=== PATIENT | male | born 1975 | race African-American/Black ===

== ENCOUNTER 2021-05-13 21:38 | Emergency (ER) | payer OTHER, SELFPAY ==
--- NOTE | ~2021-05-13 | XR_ITS ---
EXAMINATION: XR chest 2V DATE: 05/13/2021 22:18 INDICATION: Left chest pain. Shortness of breath. TECHNIQUE: Frontal and lateral views of the chest were obtained. COMPARISON: None. FINDINGS: There is mild atelectasis in lingula. No pleural effusion or pneumothorax. The heart size i s normal. IMPRESSION: 1. Mild atelectasis in lingula. Reviewed, dictated and finalized at location A.
--- NOTE | 2021-05-13 21:48 | ECG_ITS ---
Measurements Intervals [place] Rate: 66 P: 56 MO: 159 QRS: -4 QRSD: 84 T: 32 QT: 366 QTc: 386 Interpretive Statements SINUS RHYTHM WITH SINUS ARRHYTHMIA VOLTAGE CRITERIA FOR LVH BASELINE ARTIFACT- II, III BORDERLINE ECG Electronically Signed On 05-14-2021 7:24:48 CDT by Tor Petty D.O.
[2021-05-13 21:49] VITALS: BP 131/91; PULSE 64; RESP 16; TEMP 36.4; O2SAT 100
[2021-05-13 21:54] VITALS: PULSE 63
[2021-05-13 22:10] LABS: Basophils Percent Auto 0.3 % (0.2-1.2); Eosinophils Absolute Auto 0.3 K/mm3 (0-0.3); Eosinophils Percent Auto 4.1 % (0-4.4); Hematocrit 37.5 % (42.0-52.0); Hemoglobin 12.8 g/dL (14.0-18.0); Immature Granulocyte Absolute 0.01 K/mm3 (0.00-0.031); Immature Granulocyte Percent A 0.2 % (0-0.5); Lymphocytes Absolute Auto 2.25 K/mm3 (0.9-3.2); Lymphocytes Percent Auto 35.6 % (18.3-44.2); Mean Corpuscular HGB Conc 34.1 g/dl (32-36); Mean Corpuscular Hemoglobin 29.8 pg (26-34); Mean Corpuscular Volume 87.4 fl (80-100); Mean Platelet Volume 9.8 fl (7.4-10.4); Monocytes Absolute Auto 0.4 K/mm3 (0.1-0.6); Monocytes Percent Auto 6.8 % (2.6-8.5); Neutrophils Absolute Auto 3.4 K/mm3 (1.3-6.7); Platelet Count Result 209 k/mm3 (150-375); Red Blood Count 4.29 M/mm3 (4.6-6.20); Red Cell Distribution Width 12.1 % (11.5-14.5); White Blood Count 6.3 K/mm3 (4.5-10.0)
[2021-05-13 22:20] LABS: Anion Gap 7 mmol/L (8-16); Blood Urea Nitrogen 13 mg/dL (9-20); Calcium 9.1 mg/dL (8.4-10.2); Carbon Dioxide 28 mmol/L (22-30); Chloride 108 mmol/L (98-107); Estimated CRCL calculation 91 ml/min; Estimated Glomerular Filt Rate > 60; Glucose 220 mg/dL (65-110); Potassium 3.9 mmol/L (3.4-5.0); Sodium 143 mmol/L (137-145)
[2021-05-13 22:25] LABS: Partial Thromboplastin Time 27.8 SECONDS (22.3-36.8)
[2021-05-13 22:29] LABS: Prothrombin Time 12.8 Seconds (11.1-14.7)
[2021-05-13 22:31] LABS: Troponin I < 0.012 ng/mL (0.000-0.034)
[2021-05-13 22:33] VITALS: BP 103/64; PULSE 81; RESP 17; O2SAT 98
[2021-05-13] MEDS: NITROGLYCERIN SL 0.4 MG TABLET SUBLINGUAL (22:33)
[2021-05-13] MEDS: MORPHINE SULFATE (*CRX) 4 MG/ML INJ IV PUSH (22:33)
[2021-05-13 22:55] LABS: Alanine Aminotransferase 25 U/L (4-50); Albumin Level 4.4 g/dL (3.5-5.1); Alkaline Phosphatase 59 U/L (38-126); Aspartate Amino Transferase 25 U/L (17-59); Bilirubin,Total 0.6 mg/dL (0.2-1.3); Lipase 95 U/L (23-300)
--- NOTE | 2021-05-13 23:15 | PC.NURSE ---
Assumed care of patient at this time.
--- NOTE | 2021-05-14 00:24 | ED.GENADULT ---
HPI - General Adult General Chief complaint: Chest Pain Stated complaint: chest pain Time Seen by Provider: 05/13/21 21:45 History of Present Illness HPI narrative: Patient 45-year-old gentleman who presents the emergency department with chief complaint of chest pain. 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 Patient denies syncope, denies shortness of breath. Patient states that the symptoms were not improved by anything or they worsened by anything. Related Data Home Medications Medication Instructions Recorded Confirmed metformin 500 mg PO BID 05/13/21 05/13/21 Allergies Allergy/AdvReac Type Severity Reaction Status Date / Time No Known Allergies Allergy Verified 05/13/21 21:56 Review of Systems Review of Systems: A 10 system review of systems was completed on the patient and is negative except for what is stated in the HPI. Nursing and ancillary documentation was reviewed. Exam Narrative: GENERAL: Well-appearing, well-nourished, and in no acute distress. HEAD: Normocephalic, atraumatic. EYES: PERRLA and EOMI. ENT: Nares clear, no rhinorrhea or epistaxis. Mucous membranes moist. NECK: Supple. CHEST: Clear to auscultation. No respiratory distress. HEART: Regular rate and rhythm. No murmur heard. Normal peripheral pulses. ABDOMEN: Soft, nontender, nondistended, normal active bowel sounds. EXTREMITIES: Normal range of motion. No edema. SKIN: Warm, dry, no rash. NEURO: No focal deficits. Alert and oriented x3. PSYCH: Normal mood and affect. Course Course Emergency Course: EKG shows sinus rhythm rate of [address] elevation or ST depression Vital Signs Vital signs: Vital Signs Temperature 36.4 C 05/13/21 21:49 Pulse Rate 64 05/13/21 21:49 Respiratory Rate 16 05/13/21 21:49 Blood Pressure 131/91 H 05/13/21 21:49 Pulse Oximetry 100 05/13/21 21:49 Temperature 36.4 C 05/13/21 21:49 Pulse Rate 81 05/13/21 22:33 Respiratory Rate 17 05/13/21 22:33 Blood Pressure 103/64 05/13/21 22:33 Pulse Oximetry 98 05/13/21 22:33 Medical Decision Making Vital Signs Vital Signs: Vital Signs Temperature 36.4 C 05/13/21 21:49 Pulse Rate 64 05/13/21 21:49 Respiratory Rate 16 05/13/21 21:49 Blood Pressure 131/91 H 05/13/21 21:49 Pulse Oximetry 100 05/13/21 21:49 Temperature 36.4 C 05/13/21 21:49 Pulse Rate 81 05/13/21 22:33 Respiratory Rate 17 05/13/21 22:33 Blood Pressure 103/64 05/13/21 22:33 Pulse Oximetry 98 05/13/21 22:33 Lab Data Result diagrams: 05/13/21 22:04 05/13/21 22:04 Labs: Lab Results 05/13/21 05/13/21 05/13/21 Range/Units 22:04 22:04 22:04 WBC 6.3 (4.5-10.0) K/mm3 RBC 4.29 L (4.6-6.20) M/mm3 Hgb 12.8 L (14.0-18.0) g/dL Hct 37.5 L (42.0-52.0) % MCV 87.4 (80-100) fl MCH 29.8 (26-34) pg MCHC 34.1 (32-36) g/dl RDW 12.1 (11.5-14.5) % Plt Count 209 (150-375) k/mm3 MPV 9.8 (7.4-10.4) fl Immature Gran % (Auto) 0.2 (0-0.5) % Neut % (Auto) 53.0 (45.5-73.1) % Lymph % (Auto) 35.6 (18.3-44.2) % [place] % (Auto) 6.8 (2.6-8.5) % Eos % (Auto) 4.1 (0-4.4) % Baso % (Auto) 0.3 (0.2-1.2) % Lymph # (Auto) 2.25 (0.9-3.2) K/mm3 [place] # (Auto) 0.4 (0.1-0.6) K/mm3 Eos # (Auto) 0.3 (0-0.3) K/mm3 Baso # (Auto) 0.0 (0.0-0.1) K/mm3 Abs Immat Gran (auto) 0.01 (0.00-0.031) K/mm3 Absolute Neuts (auto) 3.4 (1.3-6.7) K/mm3 Absolute Nucleated RBC 0.0 (0.0-0.012) K/mm3 Nucleated RBC % 0.0 (0.0-0.2) % PT 12.8 (11.1-14.7) Seconds INR 1.0 APTT 27.8 (22.3-36.8) SECONDS Sodium 143 (137-145) mmol/L Potassium 3.9 (3.4-5.0) mmol/L Chlo
[2021-05-14 01:09] LABS: Troponin I < 0.012 ng/mL (0.000-0.034)
[2021-05-14 01:22] VITALS: BP 115/71; PULSE 64; RESP 19; TEMP 36.7; O2SAT 99
== END 2021-05-14 01:24 | disposition home or self-care (01) ==
PROVIDERS: Emergency Provider Emergency Medicine
DX: R07.89 Other chest pain (principal); E11.9 Type 2 diabetes mellitus without complications
CPT/HCPCS: 36415; 71046; 80048; 80076; 83690; 84484; 85025; 85610; 85730; 93005; 96374; 99284; A9270; J2270